=== PATIENT | male | born 1950 | race Caucasian/White ===

== ENCOUNTER 2016-03-09 17:20 | Emergency (ER) | payer BC ==
--- NOTE | 2016-03-09 18:18 | UC ---
Laceration HPI - HPI Summary HPI Summary: patient cut right humb on a grinding disc. cut is linear, approimatley 3 cm . along pad of right thumb. - History Of Current Complaint Stated Complaint: LACERATION RIGHT THUMB Time Seen by Provider: 03/09/16 18:07 Laceration Location: Finger - right thumb Mechanism Of Injury: Sharp Trauma Onset/Duration: Sudden Onset, Lasting Hours Severity: Moderate Pain Intensity: 4 Pain Scale Used: 0-10 Numeric Aggravating Factors: Nothing - Allergies/Home Medications Allergies/Adverse Reactions: Allergies Allergy/AdvReac Type Severity Reaction Status Date / Time No Known Allergies Allergy Verified 03/09/16 18:13 Home Medications: Home Medications Bp Med 1 tab PO DAILY 03/09/16 [History Confirmed 03/09/16] Extandi (Chemo) 1 tab PO DAILY 03/09/16 [History Confirmed 03/09/16] Mushroom Extract 4 tab PO DAILY 03/09/16 [History Confirmed 03/09/16] PMH/Surg Hx/FS Hx/Imm Hx Previously Healthy: Yes Endocrine History Of: Denies: Diabetes Cardiovascular History Of: Reports: Hypertension Denies: Pacemaker/ICD Respiratory History Of: Denies: Asthma Cancer History Of: Reports: Prostate Cancer - Surgical History Surgical History: Yes Surgery Procedure, Year, and Place: BILATERAL KNEE ARTHROSCOPY ,LEFT ELBOW , BILATERAL CARPAL TUNNEL, LT SHOULDER, 2011 RT LOWER NEPHRECTOMY,CYST REMOVED FROM FACE NEAR EYE - Family History Known Family History: Positive: Hypertension, Renal Disease - Social History Alcohol Use: None Substance Use Type: None Smoking Status (MU): Never Smoked Tobacco Review of Systems Constitutional: Negative Skin: Other - laceration Eyes: Negative ENT: Negative Respiratory: Negative Cardiovascular: Negative Gastrointestinal: Negative Genitourinary: Negative Motor: Negative Neurovascular: Negative Musculoskeletal: Negative Neurological: Negative Psychological: Negative All Other Systems Reviewed And Are Negative: Yes Physical Exam Triage Information Reviewed: Yes Appearance: Well-Appearing, Pain Distress, Obese Vital Signs: Initial Vital Signs Temp 97.3 F 03/09/16 18:08 Pulse 89 03/09/16 18:08 Resp 16 03/09/16 18:08 BP 175/92 03/09/16 18:08 Pulse Ox 100 03/09/16 18:08 Vital Signs Reviewed: Yes Eye Exam: Normal Eyes: Positive: Conjunctiva Clear ENT Exam: Normal ENT: Positive: Normal ENT inspection, Pharynx normal, TMs normal Dental Exam: Normal Neck exam: Normal Neck: Positive: Supple, Nontender, No Lymphadenopathy Respiratory Exam: Normal Respiratory: Positive: Chest non-tender, Lungs clear, Normal breath sounds Cardiovascular Exam: Normal Cardiovascular: Positive: RRR, No Murmur, Pulses Normal Abdominal Exam: Normal Abdomen Description: Positive: Nontender, No Organomegaly, Soft Bowel Sounds: Positive: Present Musculoskeletal Exam: Normal Musculoskeletal: Positive: Strength Intact, ROM Intact, No Edema Neurological Exam: Normal Neurological: Positive: Alert, Muscle Tone Normal Psychological Exam: Normal Skin: Positive: significant lesion(s) - 3 cm leca on right thumb, linear, small area of skin removed at tip of thumb where mash grinder also hit. no repair of that area necessary Laceration Repair - Laceration Repair 1 Description: Linear Laceration Size After Repair: Length (cm) - 3 Modified For Repair: No Type Injection: Local Anesthesia Used: 1.0% Lido Cleansing Completed Via Routine Prep: Yes Irrigation With Pressure Irrigation Device: Yes Closure Material: SteriStrips, Sutures - 5 Closure Method: Single Layer Suture Of: Skin Suture Type: Nylon Laceration Course/Dx - Course/Dx Course Of Treatment: hx obtained, exam perfromed, lac repair completed, 5 stitches placed - Differential Dx - Laceration/Wound Differental Diagnoses: Abscess, Foreign Body, Laceration, Tendon Laceration, Tenosynovitis Provider Diagnoses: simple laceration of left thumb Discharge - Discharge Plan Condition: Stable Disposition: HOME Patient Education Materials: Laceration (ED) Referrals: Tyson Hinson MD [Primary Care Provider] - Additional Instructions: keep area clean and dry, follow up with terese benoit at your scheduled appointment this week. Stitches can be removed in 7-10 days. Monitor for signs of infection. Follow up sooner if needed.
[2016-03-09 18:31] VITALS: BP 175/92
--- NOTE | 2016-03-09 18:46 | RAD ---
HISTORY: Laceration, rule out osseous injury, right thumb COMPARISONS: None VIEWS: 3, Frontal, lateral, and oblique views of the first digit of the right hand FINDINGS: BONE DENSITY: Normal. BONES: There is no displaced fracture. JOINTS: There is no arthropathy. ALIGNMENT: There is no dislocation. SOFT TISSUES: Unremarkable. OTHER FINDINGS: None. IMPRESSION: NO ACUTE OSSEOUS INJURY. IF SYMPTOMS PERSIST, RECOMMEND REPEAT IMAGING.
[2016-03-09] MEDS ORDERED: Lidocaine 1%* 5 ML VIAL ONE (18:49)
== END 2016-03-09 19:27 | disposition home or self-care (01) ==
LOC: UCCORT 17:20
DX: S61.012A Laceration without foreign body of left thumb without damage to nail, initial encounter (principal); W45.8XXA Other foreign body or object entering through skin, initial encounter; Y92.9 Unspecified place or not applicable
CPT/HCPCS: 12002; 99211; G0463

== ENCOUNTER 2017-04-25 07:36 | Emergency (ER) | payer MEDICARE ==
[2017-04-25 08:59] VITALS: BP 145/87
--- NOTE | 2017-04-25 09:19 | UC ---
UC General HPI - HPI Summary HPI Summary: 66 yo gentleman c/o last 3-4 days progressively worse cough, nasal congestion, scratchy throat. + sugj fever, woke up early this am - + sweats. GI upset, but not specific vomiting or diarrhea. No melena / brbpr. No sob. + prod cough phlegm clear. + sinus pain / congestion. No chest pain perse except with cough. No sob except with cough. Sleeps with lots of pillows. - History of Current Complaint Chief Complaint: UCRespiratory Stated Complaint: COUGH,FLU SYMPTOMS Time Seen by Provider: 04/25/17 08:40 Hx Obtained From: Patient Pain Intensity: 5 - Allergy/Home Medications Allergies/Adverse Reactions: Allergies Allergy/AdvReac Type Severity Reaction Status Date / Time No Known Allergies Allergy Verified 04/25/17 08:47 Home Medications: Home Medications Decongestant Otc 2 tab PO ONCE PRN 04/25/17 [History Confirmed 04/25/17] Ibuprofen TAB* [Motrin TAB* 400 MG] 400 mg PO Q12H PRN 04/25/17 [History Confirmed 04/25/17] PMH/Surg Hx/FS Hx/Imm Hx Previously Healthy: No - see pmh below - Surgical History Surgical History: Yes Surgery Procedure, Year, and Place: BILATERAL KNEE ARTHROSCOPY x 2,LEFT ELBOW , BILATERAL CARPAL TUNNEL, LT SHOULDER, 2011 RT LOWER Partial NEPHRECTOMY,CYST REMOVED FROM FACE NEAR EYE, vasectomy - Family History Known Family History: Positive: Hypertension, Renal Disease - Social History Alcohol Use: Occasionally Substance Use Type: None Smoking Status (MU): Never Smoked Tobacco Review of Systems Constitutional: Fever, Fatigue Skin: Negative Eyes: Negative ENT: Sore Throat, Nasal Discharge, Sinus Congestion, Sinus Pain/Tenderness Respiratory: Cough Cardiovascular: Negative Gastrointestinal: Other - see hpi Motor: Negative Neurovascular: Negative Musculoskeletal: Other: - achy Neurological: Negative - headache last night, better with ibuprofen Psychological: Negative Is Patient Immunocompromised?: No - does take hormone immunotx d/t prost ca All Other Systems Reviewed And Are Negative: Yes Physical Exam Triage Information Reviewed: Yes Appearance: Well-Appearing - sitting up, able to converse in full sentances. NAD, Well-Nourished Vital Signs: Initial Vital Signs Temp 98.6 F 04/25/17 08:50 Pulse 65 04/25/17 08:50 Resp 22 02/24/18 08:50 BP 145/87 04/25/17 08:50 Pulse Ox 97 04/25/17 08:50 Vital Signs Reviewed: Yes Eye Exam: Normal ENT: Positive: Pharyngeal erythema - mild erythema post pharynx. No sores., Nasal congestion, Nasal drainage, TM dull - TM taylor Neck exam: Normal Neck: Positive: Supple Respiratory Exam: Normal Respiratory: Positive: Chest non-tender, Lungs clear, Normal breath sounds, No respiratory distress, No accessory muscle use Cardiovascular Exam: Normal Cardiovascular: Positive: RRR, No Murmur, Pulses Normal, Brisk Capillary Refill Abdominal Exam: Normal Abdomen Description: Positive: Nontender Bowel Sounds: Positive: Present Musculoskeletal Exam: Normal - moves all four ext's ok Neurological Exam: Normal - grossly nonfocal Psychological Exam: Normal - conversing easily and appropriately Skin Exam: Normal Course/Dx - Course Course Of Treatment: Influenza nasal swab neg. D/w pt. Reviewed coa / tx plan with pt. Questions as posed answered to the best of my ability. - Differential Dx - Multi-Symptom Provider Diagnoses: Sinusitus. URI Discharge - Discharge Plan Condition: Stable Disposition: HOME Referrals: Tyson Hinson MD [Primary Care Provider] -
== END 2017-04-25 10:00 | disposition home or self-care (01) ==
LOC: UCCORT 07:36
DX: J32.9 Chronic sinusitis, unspecified (principal); J06.9 Acute upper respiratory infection, unspecified
CPT/HCPCS: 87502; 99211; G0463